=== PATIENT | male | born 1970 | race African-American/Black ===

== ENCOUNTER 2017-01-08 23:02 | Inpatient (IN) | payer SELFPAY ==
[2017-01-08] MEDS ORDERED: IPRATROPIUM/ALBUTEROL SULFATE 3 ML AMPUL.NEB NEB ONE ×2 (23:12→23:27)
--- NOTE | 2017-01-08 23:20 | ED Physician Documentation ---
Dyspnea - HISTORIAN Historian: patient - HPI Chief Complaint: Dyspnea Onset: other (3 weeks ago started) Duration: continues in ED Context: gradually getting worse over the last 4 days Severity: moderate Exacerbated By: exertion Associated Symptoms: denies: chills, fever Further Comments: yes (Patient states that he has some HTN problems. Has left his meds at home in [place] and has been taking 1/2 of normal dose until he can get back to home. Has started to have some breathing tightnes and dyspnea severla weeks ago. Has be gradually getting worse. Has been using a borrowed albuterol inhaler which seems to have helps some. Has been wheeezing. Has started to have some swelling in his ower extremities over the last week. No history or CAD, no DM, does not know his cholesterol status. Has chronic HTN, states his BP normally runs 180-190/ 105) - ROS CONST: no problems GI/: abdominal pain NEURO/PSYCH: denies: headache - PAST HX Lung Disease: denies: asthma, COPD Cardiac Disease: none PE Risk Factors: hypertension Surgeries/Procedures: none Other History: none Immunizations: other Allergies/Adverse Reactions: Allergies Allergy/AdvReac Type Severity Reaction Status Date / Time No Known Allergies Allergy Verified 01/09/17 00:25 Home Medications: Ambulatory Orders Medication Instructions Recorded Hydrochlorothiazide 25 mg PO DAILY 01/09/17 amLODIPine BESYLATE [Norvasc] 10 mg PO 0900 01/09/17 - SOCIAL HX Smoking History: quit greater than 1 year (4 years ago), greater than 1 pack/day Alcohol Use: none Drug Use: none - FAMILY HX Family History: other (hypertension, hypothyroidism) - REVIEWED ASSESSMENTS Nursing Assessment Reviewed: Yes Vitals Reviewed: Yes Progress - Progress Progress: 11:46 Duoneb has helped with the breathing and chest pressure feeling. 11:54 CXR show cardiomegally and pulmonary congestion, will give lasix 40mg IV - EKG/XRAY/CT EKG: NSR, nonspecific ST T wave chg, abnormal Q waves (inferior, poor r wave progress anteriorly) ED Results Lab/Radiology - Radiology Radiology Impressions: Chest, AP portable History: Dyspnea, chest pain Findings: There is no infiltrate, effusion or pneumothorax. The heart is significantly enlarged. Pulmonary vascular congestion is present. Impression: Cardiomegaly and pulmonary vascular congestion. - Orders Orders: ED Orders Category Date Time Status Ipratropium/Albuterol Sulfate [Duoneb] Med 01/08/17 23:12 Discontinued 3 ml NEB .STK-MED ONE Dyspnea Physical Exam - EXAM General Appearance: alert, moderate distress Neck: nml inspection. No: lymphadenopathy Respiratory: speaks full sentences, respiratory distress, wheezes, rales CVS: reg. 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
[2017-01-08] MEDS ORDERED: NITROGLYCERIN 0.4 MG TAB.SUBL SL PRN (23:26)
[2017-01-08] MEDS ORDERED: ASPIRIN 81 MG CHEW TAB PO ONE (23:26)
[2017-01-08 23:37] LABS: BASOPHILS % 0.4 (0.0-1.5); EOSINOPHILS % 3.1 % (0.0-6.8); MEAN CORPUSCULAR HEMOGLOBIN 26.6 pg (28.0-34.0); MEAN CORPUSCULAR VOLUME 83.4 fl (80.0-100.0); MONOCYTES % 4.9 % (0.0-11.0); NEUTROPHILS # 3.1 # k/uL (1.4-7.7)
[2017-01-08 23:51] LABS: eGFR (African) 56; eGFR (Non-African) 47
[2017-01-08] MEDS ORDERED: FUROSEMIDE 40 MG/4 ML VIAL ONE (23:53)
[2017-01-08] MEDS ORDERED: FUROSEMIDE 40 MG/4 ML VIAL IVP ONE (23:53)
[2017-01-09] MEDS ORDERED: PNEUMOCOCCAL 23-VAL IM ONE (00:29)
[2017-01-09] MEDS ORDERED: IPRATROPIUM/ALBUTEROL SULFATE 3 ML AMPUL.NEB NEB PRN (00:29)
[2017-01-09] MEDS ORDERED: ACETAMINOPHEN 500 MG TABLET PO PRN (00:35)
[2017-01-09] MEDS ORDERED: NITROGLYCERIN 0.4MG/HR PATCH TD ONE (00:39)
[2017-01-09] MEDS: HYDRALAZINE HCL 25 MG TABLET PO SCH ×4 (01:01→17:44)
[2017-01-09] MEDS: LISINOPRIL 5 MG TABLET PO SCH ×2 (01:01→08:47)
[2017-01-09] MEDS: ENOXAPARIN SODIUM 30 MG/0.3 ML DISP.SYRIN SQ SCH (01:09)
[2017-01-09 01:17] VITALS: BMI 41.7
[2017-01-09] MEDS: FUROSEMIDE 40 MG/4 ML VIAL IVP SCH ×2 (05:58→14:07)
[2017-01-09 06:28] LABS: eGFR (African) > 60; eGFR (Non-African) 50
--- NOTE | 2017-01-09 07:11 | Diagnostic Imaging Report ---
BOBY SPARKS [facility] [address] [facility].[address] [address] Report Submission Date: Jan 08, 2017 11:51:51 PM CDT Patient Study Name: THU SHARPE Date: Jan 08, 2017 11:37:51 PM CDT Modality Type: CR Gender: M Description: CHEST : 72 Institution: [facility] Physician: BOBY SPARKS Chest, AP portable History: Dyspnea, chest pain Findings: There is no infiltrate, effusion or pneumothorax. The heart is significantly enlarged. Pulmonary vascular congestion is present. Impression: Cardiomegaly and pulmonary vascular congestion. Electronically signed on Jan 08, 2017 11:51:51 PM CDT by: Zeke BARCLAY
[2017-01-09] MEDS: amLODIPine BESYLATE 5 MG TABLET PO SCH ×2 (08:47→08:48)
[2017-01-09] MEDS: SALINE FLUSH 10 ML DISP.SYRIN IV SCH ×2 (09:00→20:23)
[2017-01-10] MEDS: ENOXAPARIN SODIUM 30 MG/0.3 ML DISP.SYRIN SQ SCH (03:22)
[2017-01-10] MEDS: FUROSEMIDE 40 MG/4 ML VIAL IVP SCH (06:14)
--- NOTE | 2017-01-10 06:49 | Diagnostic Imaging Report ---
BOBY SPARKS [facility] [address] [facility].[address] [address] Report Submission Date: Jan 10, 2017 6:47:52 AM CDT Patient Study Name: THU SHARPE Date: Jan 10, 2017 6:28:49 AM CDT Modality Type: CR Gender: M Description: CHEST : 72 Institution: [facility] Physician: BOBY SPARKS Chest, PA and lateral History: Heart failure Findings: No infiltrate, effusion or pneumothorax is present. The heart is enlarged. Pulmonary vascularity is normal. Impression: Cardiomegaly. Electronically signed on Jan 10, 2017 6:47:52 AM CDT by: Zeke BARCLAY
[2017-01-10 07:14] LABS: eGFR (African) > 60; eGFR (Non-African) 54
[2017-01-10] MEDS: HYDRALAZINE HCL 25 MG TABLET PO SCH (09:28)
[2017-01-10] MEDS: SALINE FLUSH 10 ML DISP.SYRIN IV SCH (09:29)
[2017-01-10 09:58] VITALS: BP 149/101
--- NOTE | 2017-01-22 11:17 | Inpatient Progress Note ---
Objective - Exam Vitals and I&O: Vital Signs Temp 96.4 F L 01/10/17 09:57 Pulse 94 H 01/10/17 10:00 Resp 18 01/10/17 10:00 BP 149/101 01/10/17 09:57 Pulse Ox 96 01/10/17 09:57 - Results Results: Laboratory Results WBC 6.40 K/ul (4.00-12.00) 01/08/17 23:32 RBC 4.89 M/ul (3.90-5.20) 01/08/17 23:32 Hgb 13.0 g/dL (12.0-18.0) 01/08/17 23:32 Hct 40.8 % (37.0-53.0) 01/08/17 23: MCV 83.4 fl (80.0-100.0) 01/08/17 23: MCH 26.6 pg (28.0-34.0) L 01/08/17 23: MCHC 31.8 g/dL (30.0-36.0) 01/08/17 23:32 RDW 14.1 % (11.3-14.3) 01/08/17 23:32 Plt Count 227 K/mm3 (130-400) 01/08/17 23:32 Neut % (Auto) 48.2 % (39.0-79.0) 01/08/17 23:32 Lymph % (Auto) 40.1 % (16.0-50.0) 01/08/17 23: Pike % (Auto) 4.9 % (0.0-11.0) 01/08/17 23: Eos % (Auto) 3.1 % (0.0-6.8) 01/08/17 23: Baso % (Auto) 0.4 (0.0-1.5) 01/08/17 23: Neut # (Auto) 3.1 # k/uL (1.4-7.7) 01/08/17 23: Lymph # (Auto) 2.6 # k/uL (0.6-4.0) 01/08/17 23:32 Pike # (Auto) 0.3 # k/uL (0.0-0.9) 01/08/17 23:32 Eos # (Auto) 0.2 # k/uL (0.0-0.6) 01/08/17 23:32 Baso # (Auto) 0.0 # k/uL (0.0-0.5) 01/08/17 23:32 Reactive Lymphs % 3.3 % (0.0-5.0) 01/08/17 23:32 Reactive Lymphs # 0.2 # k/uL (0.0-0.8) 01/08/17 23:32 D-Dimer 562 ng/mL (6.0-682) 01/08/17 23:31 Sodium 138 mmol/L (136-145) 01/10/17 05:40 Potassium 3.9 mmol/L (3.5-5.0) 01/10/17 05:40 Chloride 100 mmol/L (98-110) 01/10/17 05:40 Carbon Dioxide 32 mmol/L (20-32) 01/10/17 05:40 BUN 23 mg/dL (10-26) 01/10/17 05:40 Creatinine 1.5 mg/dL (0.4-1.5) 01/10/17 05:40 Estimated Creat Clear 96 01/10/17 05:40 Est GFR ( Amer) > 60 (60-) 01/10/17 05:40 Est GFR (Non-Af Amer) 54 (60-) L 01/10/17 05:40 Glucose 125 mg/dL (70-99) H 01/10/17 05:40 Estimat Average Glucose 126 mg/dL 01/10/17 05:40 Hemoglobin A1c 6.0 % (4.0-5.6) H 01/10/17 05:40 Calcium 9.0 mg/dL (8.5-10.5) 01/10/17 05:40 Total Bilirubin 0.8 mg/dL (0.2-1.2) 01/10/17 05:40 AST 36 U/L (0-41) 01/10/17 05:40 ALT 56 U/L (0-45) H 01/10/17 05:40 Alkaline Phosphatase 69 U/L (46-116) 01/10/17 05:40 Troponin I 0.07 ng/mL (0.03-0.06) H 01/09/17 11:50 NT-Pro-B Natriuret Pep 3614.2 pg/mL (15.0-125.0) H 01/08/17 23:31 Total Protein 7.5 g/dL (6.0-8.5) 01/10/17 05:40 Albumin 4.2 g/dL (3.0-5.5) 01/10/17 05:40 Triglycerides 109 mg/dL (<150) 01/10/17 05:40 Cholesterol 144 mg/dL (<200) 01/10/17 05:40 LDL Cholesterol, Calc 99 mg/dL (<130) 01/10/17 05:40 HDL Cholesterol 23 mg/dL (>=40) L 01/10/17 05:40 LDL/HDL Ratio 4.30 (3.55) H 01/10/17 05:40 Cholesterol/HDL Ratio 6.26 (5.00) H 01/10/17 05:40 Lipid Phenotype Normal 01/10/17 05:40
--- NOTE | 2017-01-22 11:17 | Discharge Summary ---
Discharge Summary - Discharge Sumary History of Present Illness: 46-year-old male who has a history of hypertension. Patient has been traveling and forgot his medications at home. Patient is not been using medications as prescribed trying to get by until we can get back home. Patient does having some increasing dyspnea. Patient denies any chest pain. Patient had a mild cough that was productive for some cleared to white plan. No home offices noted. Patient denies any wheezing or ronchi. Patient is not had any fever or chills. Patient was seen in ED and had a CXR done which was consistent with cardiomegally and CHF. Patient was subsequently admitted to the hospital for further diuresis and evaluation. Condition at Discharge: Stable Home Medications: Ambulatory Orders Medication Instructions Recorded amLODIPine BESYLATE [Norvasc] 10 mg PO 0900 01/09/17 Furosemide 20 mg PO D #30 tablet 01/10/17 Lisinopril [Zestril] 10 mg PO D #30 tablet 01/10/17 Consultations this Visit: None Procedures this Visit: None Allergies/Adverse Reactions: Allergies Allergy/AdvReac Type Severity Reaction Status Date / Time No Known Allergies Allergy Verified 01/09/17 00:25 Discharge Summary: 41-year-old white male who submitted from [facility] for congestive heart failure. Patient was started on supplemental oxygen therapy. Patient was given IV furosemide with good diaphoresis. Initial chest x-ray showed cardiomegaly with cardiopulmonary vascular congestion. X-ray at the time of discharge showed continued cardiomegaly about the pulmonary vascular congestion have cleared. So you cardiac enzymes were obtained and were slightly elevated been stable and felt to be related to his hypertension. Patient was three started on his home medications with improvement of his blood pressure.Patient was advised that it was important for him to see a mold filler and drainer after he returned home for further diagnostic studies including an echocardiogram. Patient was advised to make sure that he takes his medications as prescribed. Patient subsequently discharged in stable condition. 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
--- NOTE | 2017-01-22 11:25 | History and Physical Report ---
History of Present Illnes - History of Present Illness Reason for Visit: dyspnea History of Present Illness: 46-year-old white male who has a history of hypertension. Patient has been traveling and forgot his medications at home. Patient is not been using medications as prescribed trying to get by until we can get back home. Patient does having some increasing dyspnea. Patient denies any chest pain. Patient had a mild cough that was productive for some cleared to white plan. No home offices noted. Patient denies any wheezing or ronchi. Patient is not had any fever or chills. Patient was seen in ED and had a CXR done which was consistent with cardiomegally and CHF. Patient was subsequently admitted to the hospital for further diuresis and evaluation. - Past Medical History Cardiac: HTN - Past Surgical History Past Surgical History: None - Past Social History Smoke: Quit ( 4 year ago) Alcohol: None Drugs: None Lives: With Family Domestic Violence: Negative - Health Maintenance Health Maintenance: denies: Cholesterol, Influenza Vaccine, Pneumococcal Vaccine Influenza Vaccine: No Pneumonia Vaccine: No Resuscitation Status: Resusciation Status Resuscitation Status Full Code - Unable to Obtain History Unable to Obtain: No Review of Systems - Review of Systems Constitutional: negative: Fever, Chills, Weakness Eyes: negative: pain, vision change ENT: negative: Ear Pain, Ear Discharge, Nose Pain, Nose Congestion, Mouth Pain, Mouth Swelling Respiratory: negative: Cough, Dry, Shortness of Breath, Hemoptysis Cardiovascular: negative: Chest Pain, Palpitations Gastrointestinal: negative: Nausea, Vomiting, Abdominal Pain, Diarrhea Genitourinary: negative: Dysuria, Frequency, Incontinence Musculoskeletal: negative: Neck Pain, Shoulder Pain, Arm Pain, Back Pain Skin: negative: Rash, Lesions Neurological: negative: Weakness, Numbness, Incoordination - Medications/Allergies Allergies/Adverse Reactions: Allergies Allergy/AdvReac Type Severity Reaction Status Date / Time No Known Allergies Allergy Verified 01/09/17 00:25 Home Medications: Home Medications amLODIPine BESYLATE [Norvasc] 10 mg PO 0900 01/09/17 Exam - Exam General: Alert, Oriented to Person, Oriented to Place, Oriented to Time, Cooperative, No acute distress HEENT: Atraumatic Neck: Stridor Lungs: Normal air movement, Speaks full Sentences, Respiratory Distress, Wheezes (mild), Rales (bases bilateral). No: Rhonchi, Prolonged Expiration Cardiovascular: Regular rate, Normal S1, Normal S2, No murmurs. No: Gallops Abdomen: Normal bowel sounds, Soft, No tenderness, No hepatospenomegaly, No masses. No: Distended Integumentary: Normal, [place], Warm, Dry Extremities: No clubbing, No cyanosis, Normal pulses, Other (2 plus edema) Neurological: Normal gait, Normal speech, Strength Equal Bilat, Normal tone Psych/Mental Status: Mental status NL, Mood NL, Appropriate Affect, Intact Judgment - Laboratory Results Laboratory Results: Laboratory Results 01/09/17 01/09/17 01/09/17 05:35 05:35 11:50 Sodium 140 Potassium 3.9 Chloride 105 Carbon Dioxide 28 BUN 23 Creatinine 1.6 H Estimated Creat Clear 91 Est GFR ( Amer) > 60 Est GFR (Non-Af Amer) 50 L Glucose 103 H Estimat Average Glucose Hemoglobin A1c Calcium 8.6 Total Bilirubin 0.6 AST 44 H ALT 64 H Alkaline Phosphatase 65 Troponin I 0.08 H 0.07 H Total Protein 7.3 Albumin 4.1 Triglycerides Cholesterol LDL Cholesterol, Calc HDL Cholesterol LDL/HDL Ratio Cholesterol/HDL Ratio Lipid Phenotype 01/10/17 01/10/17 01/10/17 05:40 05:40 05:40 Sodium 138 Potassium 3.9 Chloride 100 Carbon Dioxide 32 BUN 23 Creatinine 1.5 Estimated Creat Clear 96 Est GFR ( Amer) > 60 Est GFR (Non-Af Amer) 54 L Glucose 125 H Estimat Average Glucose 126 Hemoglobin A1c 6.0 H Calcium 9.0 Total Bilirubin 0.8 AST 36 ALT 56 H Alkaline Phosphatase 69 Troponin I Total Protein 7.5 Albumin 4.2 Triglycerides 109 Cholesterol 144 LDL Cholesterol, Calc 99 HDL Cholesterol 23 L LDL/HDL Ratio 4.30 H Cholesterol/HDL Ratio 6.26 H Lipid Phenotype Normal Assessment/Plan - Assessment/Plan (1) CHF (congestive heart failure) Status: Acute Qualifiers: Congestive heart failure type: systolic Congestive heart failure chronicity : acute Qualified Code(s): I50.21 - Acute systolic (congestive) heart failure Plan: Will start IV Lasix and diuresis. [place] oxygen status. Monitor EKG. Will get serial troponins. 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 VTE Assessment - RISK FACTOR SCORE VTE RISK FACTOR SCORES: AGE 40-60 YEARS, CONGESTIVE HEART FAILURE OR MYOCARDIAL INFARCTION - RISK VTE MODERATE RISK: SCORE OF 2 (RISK PROXIMAL DVT 2-4%) PROPHYAXIS NEEDED
== END 2017-01-10 12:40 | disposition home or self-care (01) | DRG 304 ==
LOC: ED 23:02 → SOUTH 01-09 00:23
PROVIDERS: ADMIT Physician Assistant; ATTEND Physician Assistant
DX: I10 Essential (primary) hypertension (principal); I50.21 Acute systolic (congestive) heart failure; E11.9 Type 2 diabetes mellitus without complications
CPT/HCPCS: 36415; 71010; 71020; 80053; 80061; 83036; 83880; 84484; 85025; 85379; 93005; 99284; J1940; 99223; 99233; 99238; S1016

== ENCOUNTER 2017-04-02 13:23 | Emergency (ER) | payer SELFPAY ==
--- NOTE | 2017-04-02 13:56 | ED Physician Documentation ---
General Adult - HISTORIAN Historian: patient - HPI Stated Complaint: SOA Chief Complaint: General Adult Additional Information: Patient states that he has been out of his blood pressure medication for several weeks. Patient is not sure what he has been taking. Has been having some mild chest discomfort. States it is hard for him to breath. Has had a cough of some clear phlegm. Patient states these are similar symptom that he had when he was admitted to the hospital several months ago. Patient stated he has been check in his blood pressure at home and is been running a little behind with is not remember the numbers when he is taking his medications. Patient states however his blood pressure has been much higher since is been off of the medication. Onset: days ago Timing: still present Severity: moderate Further Comments: yes (patient was advised to get a cardiology consult with an echocardiogram upon discharge when he wears admitted to the hospital in December. Patient stated he is not been so. At that time I felt that the patient did have some mild congestive heart failure.) - ROS CONST: no problems. denies: fever, chills CVS/RESP: shortness of breath (mild), cough. denies: chest pain GI/: none MS/SKIN/LYMPH: none - PAST HX Past History: COPD, hypertension Other History: none Surgeries/Procedures: none Allergies/Adverse Reactions: Allergies Allergy/AdvReac Type Severity Reaction Status Date / Time No Known Allergies Allergy Verified 04/02/17 13:51 Home Medications: Ambulatory Orders Medication Instructions Recorded Furosemide 20 mg PO D #30 tablet 04/02/17 amLODIPine BESYLATE [Norvasc] 10 mg PO 0900 #60 tablet 04/02/17 - SOCIAL HX Smoking History: non-smoker, chew Alcohol Use: none Drug Use: none - FAMILY HX Family History: Yes (HTN) - VITAL SIGNS Vital Signs: Vital Signs Temp Pulse Resp BP Pulse Ox 98.3 F 103 H 19 189/134 96 04/02/17 13:45 04/02/17 13:45 04/02/17 13:45 04/02/17 13:45 04/02/17 13:45 - REVIEWED ASSESSMENTS Nursing Assessment Reviewed: Yes Vitals Reviewed: Yes Progress - Progress Progress: 15:03 Patient is feeling better, feel that a breathing treatment would help. Has a history of COPD ED Results Lab/Radiology - Radiology Radiology Impressions: Examination: PA and lateral chest. History: Evaluate lung jacobs. Comparison exam: 10 January 2017 Findings: PA lateral chest demonstrate a prominent cardiac and mediastinal silhouette: stable the prior study. No focal infiltrate. No blunting of the costophrenic margins. Osseous structures are appropriate for age. Impression: Stable cardiac prominence. No acute pulmonary process. General Adult Physical Exam - PHYSICAL EXAM GENERAL APPEARANCE: mild distress EENT: eye inspection normal, ENT inspection normal, pharynx normal NECK: normal inspection, thyroid normal, supple RESPIRATORY: no resp distress, chest non-tender, breath sounds normal, rales ( few in the bases). No: wheezes CVS: reg rate & rhythm, heart sounds normal, equal pulses, no murmur, no gallop ABDOMEN: soft, no organomegaly, normal bowel sounds, no abdominal bruit, no distension, non-tender SKIN: warm/dry, normal color EXTREMITIES: non-tender NEURO: oriented X3, CN's nml as tested, motor nml, mood/affect nml, cognition normal Discharge Clincal Impression: Cardiomegaly Hypertension Qualifiers: Hypertension type: essential hypertension Qualified Code(s): I10 - Essential ( primary) hypertension Proteinuria Qualifiers: Proteinuria type: persistent Qualified Code(s): R80.1 - Persistent proteinuria , unspecified COPD (chronic obstructive pulmonary disease) Qualifiers: COPD type: emphysema Prescriptions: amLODIPine BESYLATE [Norvasc] 10 mg PO 0900 #60 tablet Furosemide 20 mg PO D #30 tablet Referrals: Primary Doctor,No [Primary Care Provider] - 2 Days Additional Instructions: Take Amlodipine 10mg, Lasix 20mg as instructed. Return to my office in about two weeks for recheck. Condition: Stable Disposition: 01 HOME, SELF-CARE Decision to Admit: NO Date of Decison to Admit: 04/02/17 Decision Time: 15:05
[2017-04-02 14:10] LABS: BASOPHILS % 0.7 (0.0-1.5); EOSINOPHILS % 1.4 % (0.0-6.8); MEAN CORPUSCULAR HEMOGLOBIN 26.1 pg (28.0-34.0); MEAN CORPUSCULAR VOLUME 85.5 fl (80.0-100.0); MONOCYTES % 4.8 % (0.0-11.0); NEUTROPHILS # 3.5 # k/uL (1.4-7.7)
[2017-04-02] MEDS: LABETALOL HCL 100MG/20ML VIAL IVP STA (14:22)
[2017-04-02] MEDS: ONDANSETRON HCL/PF 4 MG/ 2ML VIAL ONE (14:29)
[2017-04-02] MEDS: ONDANSETRON HCL/PF 4 MG/ 2ML VIAL IVP ONE (14:34)
--- NOTE | 2017-04-02 15:09 | Diagnostic Imaging Report ---
BOBY SPARKS [facility] [address] [facility] [address] [address] Report Submission Date: Apr 02, 2017 2:47:20 PM SURG PHYSICIAN ASST Patient Study Name: THU SHARPE Date: Apr 02, 2017 2:27:56 PM SURG PHYSICIAN ASST Modality Type: CR Gender: M Description: CHEST : 72 Institution: [facility] Physician: BOBY SPARKS Examination: PA and lateral chest. History: Evaluate lung jacobs. Comparison exam: 10 January 2017 Findings: PA lateral chest demonstrate a prominent cardiac and mediastinal silhouette: stable the prior study. No focal infiltrate. No blunting of the costophrenic margins. Osseous structures are appropriate for age. Impression: Stable cardiac prominence. No acute pulmonary process. Electronically signed on Apr 02, 2017 2:47:20 PM SURG PHYSICIAN ASST by: Tristan BARCLAY
[2017-04-02] MEDS: ALBUTEROL SULFATE 2.5 MG/3 ML AMPUL.NEB NEB ONE (15:10)
[2017-04-02 15:36] VITALS: BP 142/93
== END 2017-04-02 15:30 | disposition home or self-care (01) ==
LOC: ED 13:23
DX: I42.9 Cardiomyopathy, unspecified (principal); I10 Essential (primary) hypertension; R80.1 Persistent proteinuria, unspecified
CPT/HCPCS: 71020; 80053; 84484; 85025; 93005; J2405; J3490; 96372; 99283; S1016

== ENCOUNTER 2017-06-04 16:12 | Outpatient (CLI) | payer SELFPAY ==
[2017-05-07 08:53] VITALS: BP 168/97
== END 2017-06-04 16:13 ==
LOC: NEPHRO 16:12
PROVIDERS: ATTEND Internal Medicine Nephrology
DX: N18.9 Chronic kidney disease, unspecified (principal); I10 Essential (primary) hypertension; I50.9 Heart failure, unspecified
CPT/HCPCS: 99213

== ENCOUNTER 2017-06-10 12:14 | Emergency (ER) | payer BC, OTHER ==
--- NOTE | 2017-06-10 12:32 | ED Physician Documentation ---
Dyspnea - HISTORIAN Historian: patient - HPI Chief Complaint: Dyspnea Additional Information: 46 yo male presents to ER with c/o SOA that began this morning. Denies cough/ fever. Has history of CHF and reports approx 5 # weight gain over the previous day. No chest pain. Has been taking his meds as prescribed. Was in this hospital May 03, 2017 with similar symptoms and diuresed with good improvement in symptoms Onset: days ago (1) Duration: continues in ED Severity: mild Exacerbated By: exertion Associated Symptoms: none - ROS CONST: no problems - PAST HX Lung Disease: none Cardiac Disease: CHF Allergies/Adverse Reactions: Allergies Allergy/AdvReac Type Severity Reaction Status Date / Time No Known Allergies Allergy Verified 06/10/17 12:49 - SOCIAL HX Smoking History: non-smoker - FAMILY HX Family History: none - VITAL SIGNS Vital Signs: Vital Signs Temp Pulse Resp BP Pulse Ox 168/97 05/07/17 09:00 Progress - Progress Progress: reviewed labs from today and previous admission in Apr. BNP slightly elevated with mild peripheral edema. However, pt not requiring supplemental O2. Will attempt to manage as outpatient. Contacted pt's PCP, Dr Power who agrees with plan and will increase Lasix to 40mg BID until seen by PCP in 2 days. ED Results Lab/Radiology - Radiology Radiology Impressions: chest x-ray: cardiomegaly with mild vascular congestion - Orders Orders: ED Orders Category Date Time Status CHEST 1 VIEW [RAD] Stat Exams 06/10/17 Ordered CBC/PLATELET/DIFF Routine Lab 06/10/17 12:30 Received CMP Routine Lab 06/10/17 12:30 Received NT-proBNP Stat Lab 06/10/17 12:30 Received Dyspnea Physical Exam - EXAM General Appearance: no acute distress, alert EENT: ENT inspection normal, KENDRICK Neck: nml inspection Respiratory: no resp. distress, rhonchi, other (mild crackles bilaterally) CVS: reg. rate & rhythm Abdomen: non-tender Neuro/Psych: oriented x3 Discharge Clincal Impression: CHF exacerbation Qualifiers: Congestive heart failure type: unspecified Qualified Code(s): I50.9 - Heart failure, unspecified Referrals: Primary Doctor,No [Primary Care Provider] - 2 Days Condition: Good Disposition: 01 HOME, SELF-CARE Decision to Admit: NO Decision Time: 13:13
[2017-06-10 12:33] LABS: BASOPHILS % 0.9 (0.0-1.5); EOSINOPHILS % 2.2 % (0.0-6.8); MEAN CORPUSCULAR HEMOGLOBIN 26.3 pg (28.0-34.0); MEAN CORPUSCULAR VOLUME 84.6 fl (80.0-100.0); MONOCYTES % 6.5 % (0.0-11.0); NEUTROPHILS # 3.4 # k/uL (1.4-7.7)
[2017-06-10] MEDS: FUROSEMIDE 40 MG/4 ML VIAL IVP ONE (12:44)
[2017-06-10 13:47] VITALS: BP 189/98
--- NOTE | 2017-06-10 15:15 | Diagnostic Imaging Report ---
DANA GONZALEZ [facility] [address] [facility] [address] [address] Report Submission Date: Jun 10, 2017 1:13:22 PM VETERINARY BACTERIOLOGIST Patient Study Name: THU SHARPE Date: Jun 10, 2017 1:01:08 PM VETERINARY BACTERIOLOGIST Modality Type: CR Gender: M Description: CHEST : 72 Institution: [facility] Physician: DANA GONZALEZ Examination: PA and lateral chest. History: Evaluate lung jacobs. Comparison exam: 04 May 2017 Findings: PA lateral chest demonstrate a prominent cardiac and mediastinal silhouette: stable the prior study. Mild lordotic positioning. Elevation of the right hemidiaphragm. Mild basilar parenchymal haziness. Blunting of the right costophrenic margin. Osseous structures are appropriate for age. Impression: Mild basilar infiltrates and likely right effusion. Electronically signed on Jun 10, 2017 1:13:22 PM VETERINARY BACTERIOLOGIST by: Tristan BARCLAY
== END 2017-06-10 13:43 | disposition home or self-care (01) ==
LOC: ED 12:14
DX: I50.9 Heart failure, unspecified (principal); R06.00 Dyspnea, unspecified
CPT/HCPCS: 71010; 80053; 83880; 84484; 85025; 99283; J1940; S1016

== ENCOUNTER 2017-06-12 11:58 | Outpatient (CLI) | payer BC | END 2017-06-12 12:00 | LOC: LAB 11:58 | PROVIDERS: ATTEND Family Medicine | DX: I10 Essential (primary) hypertension (principal) | CPT/HCPCS: 36415; 83970; 84100 ==

== ENCOUNTER 2017-06-13 09:14 | Outpatient (CLI) | payer BC, OTHER ==
--- NOTE | 2017-06-13 10:05 | Diagnostic Imaging Report ---
FLO RODGERS [facility] [address] [facility] [address] [address] Report Submission Date: Jun 13, 2017 10:03:53 AM ADZING AND BORING MACHINE FEEDER Patient Study Name: THU SHARPE Date: Jun 13, 2017 9:38:11 AM ADZING AND BORING MACHINE FEEDER Modality Type: US Gender: M Description: US EXAM ABD BACK WALL : 72 Institution: [facility] Physician: FLO RODGERS Examination: Ultrasound kidneys History: KIDNEY DISEASE (Hx) Comparison exams: None available. Findings: Right kidney measures 10.2 cm in length. Left kidney measures 10.8 cm in length. No evidence for cortical mass bilaterally. Bilateral renal cysts: Left measuring 1.9 cm maximally, right measuring 9 mm maximally. Bladder margin without mucosal regularity. Bilateral ureteral jets. Pre void bladder volume of 111 ml. No post void residual. Impression: Bilateral renal cysts. No evidence for cortical mass or obstruction. Electronically signed on Jun 13, 2017 10:03:53 AM ADZING AND BORING MACHINE FEEDER by: Tristan BARCLAY
== END 2017-06-13 09:15 ==
LOC: RAD 09:14
PROVIDERS: ATTEND Family Medicine
DX: I10 Essential (primary) hypertension (principal); I50.21 Acute systolic (congestive) heart failure; N18.1 Chronic kidney disease, stage 1
CPT/HCPCS: 76770

== ENCOUNTER 2017-09-05 16:04 | Emergency (ER) | payer BC ==
--- NOTE | 2017-09-05 16:56 | ED Physician Documentation ---
General Adult - HISTORIAN Historian: patient, spouse - HPI Stated Complaint: SOB Chief Complaint: General Adult Additional Information: HX CHF. 17 pound weight gain in last two weeks. SCHMITZ. Abdomen feels tight. Has appt at [facility] in 5 days with cardiology. Saw his primary today, who was reluctant to increase his lasix further (now 40 mg BID), so sent him to ER. EF recently 35%. - ROS CONST: denies: fever - PAST HX Past History: CHF - SOCIAL HX Smoking History: non-smoker - FAMILY HX Family History: No - VITAL SIGNS Vital Signs: Vital Signs Temp Pulse Resp BP Pulse Ox 189/98 06/10/17 13:43 <ALIRIO LAWRENCE - Last Filed: 09/05/17 19:07> - VITAL SIGNS Vital Signs: Vital Signs Temp Pulse Resp BP Pulse Ox 98.1 F 74 26 H 155/80 96 09/05/17 16:04 09/05/17 18:00 09/05/17 16:04 09/05/17 16:04 09/05/17 16:04 <French Ferguson - Last Filed: 09/05/17 20:22> - PAST HX Allergies/Adverse Reactions: Allergies Allergy/AdvReac Type Severity Reaction Status Date / Time No Known Allergies Allergy Verified 06/10/17 12:49 Progress - Progress Progress: Patient Study Name: THU SHARPE Date: Sep 05, 2017 5:30:43 PM CDT Modality Type: DX Gender: M Description: CHEST : 72 Institution: [facility] Physician: ALIRIO LAWRENCE - Examination: Portable chest. History: Evaluate lung jacobs. Comparison exam: 02 April 2017 Findings: Single view of the chest demonstrate a prominent cardiac and mediastinal silhouette: stable the prior study. No focal infiltrate. No blunting of the costophrenic margins. Articular degenerative changes. Impression: Stable cardiac prominence. No acute pulmonary process. Electronically signed on Sep 05, 2017 5:55:19 PM CDT by: Tristan Jacob, care to Dr. Ferguson. <ALIRIO LAWRENCE - Last Filed: 09/05/17 19:07> - Results/Orders Results/Orders: pt received from ALIRIO 1900hrs for sy chf fluid retention. he has lhad excellent urine out put w/the 40 lasix and has an appt w/his cardiologists tues next so we will sent him home w/increase lasix to 40 tid and take copies lab etc to his cardiologists. <French Ferguson - Last Filed: 09/05/17 20:22> ED Results Lab/Radiology - Orders Orders: ED Orders Category Date Time Status Continuous EKG monitoring Q1H Care 09/05/17 16:36 Active CHEST 1VIEW [RAD] Stat Exams 09/05/17 Ordered CBC/PLATELET/DIFF Routine Lab 09/05/17 Ordered CMP [CMP] Routine Lab 09/05/17 Ordered NT-proBNP Stat Lab 09/05/17 Ordered EKG WITH COMPARISON Stat Ther 09/05/17 Ordered <ALIRIO LAWRENCE - Last Filed: 09/05/17 19:07> - Lab Results Lab Results: Lab Results 09/05/17 09/05/17 09/05/17 16:48 16:30 16:30 WBC 4.50 K/ul K/ul (4.00-12.00) RBC 5.31 M/ul H M/ul (3.90-5.20) Hgb 14.3 g/dL g/dL (12.0-18.0) Hct 44.0 % % (37.0-53.0) MCV 82.9 fl fl (80.0-100.0) MCH 26.8 pg L pg (28.0-34.0) MCHC 32.4 g/dL g/dL (30.0-36.0) RDW 14.2 % % (11.3-14.3) Plt Count 253 K/mm3 K/mm3 (130-400) Neut % (Auto) 43.8 % % (39.0-79.0) Lymph % (Auto) 41.8 % % (16.0-50.0) [place] % (Auto) 6.5 % % (0.0-11.0) Eos % (Auto) 4.4 % % (0.0-6.8) Baso % (Auto) 0.4 (0.0-1.5) Neut # (Auto) 2.0 # k/uL # k/uL (1.4-7.7) Lymph # (Auto) 1.9 # k/uL # k/uL (0.6-4.0) [place] # (Auto) 0.3 # k/uL # k/uL (0.0-0.9) Eos # (Auto) 0.2 # k/uL # k/uL (0.0-0.6) Baso # (Auto) 0.0 # k/uL # k/uL (0.0-0.5) Reactive Lymphs % 3.3 % % (0.0-5.0) Reactive Lymphs # 0.2 # k/uL # k/uL (0.0-0.8) Sodium 142 mmol/L mmol/L (136-145) Potassium 3.9 mmol/L mmol/L (3.5-5.1) Chloride 99 mmol/L mmol/L (98-107) Carbon Dioxide 28 mmol/L mmol/L (22-30) BUN 18 mg/dL mg/dL (9-20) Creatinine 1.50 mg/dL H mg/dL (0.66-1.25) Estimated Creat Clear 110 Est GFR ( Amer) > 60 (60 - ) Est GFR (Non-Af Amer) 54 L (60 - ) Glucose 130 mg/dL H mg/dL (74-106) Calcium 8.9 mg/dL mg/dL (8.4-10.2) Total Bilirubin 0.7 mg/dL mg/dL (0.2-1.3) AST 41 U/L U/L (15-46) ALT 44 U/L U/L (13-69) Alkaline Phosphatase 54 U/L U/L (38-126) NT-Pro-B Natriuret Pep 358.2 pg/mL H pg/mL (15.0-125.0) Total Protein 7.8 g/dL g/dL (6.3-8.2) Albumin 4.3 g/dL g/dL (3.5-5.0) - Radiology Radiology Impressions: cxr does not reveal sig chf and his abd is sig more distended than usual-his LFT are ok so will send hem home with lasix increase only until sees cardiology. - Orders Orders: ED Orders Category Date Time Status Continuous EKG monitoring Q1H Care 09/05/17 16:36 Active CHEST 1VIEW [RAD] Stat Exams 09/05/17 Completed CBC/PLATELET/DIFF Routine Lab 09/05/17 16:30 Completed CMP [CMP] Routine Lab 09/05/17 16:30 Completed NT-proBNP Stat Lab 09/05/17 16:48 Completed Furosemide [Lasix] Med 09/05/17 18:18 Discontinued 40 mg IVP NOW ONE EKG WITH COMPARISON Stat Ther 09/05/17 Ordered <French Ferguson - Last Filed: 09/05/17 20:22> General Adult Physical Exam - PHYSICAL EXAM GENERAL APPEARANCE: obese EENT: eye inspection normal, ENT inspection normal, pharynx normal NECK: normal inspection, supple RESPIRATORY: no resp distress, breath sounds normal CVS: reg rate & rhythm, heart sounds normal (a little distant) ABDOMEN: soft, no organomegaly (liver 6-7 cm below RCM at MCL in 30 5 recumbent position), non-tender BACK: normal inspection, no CVA tenderness (no vertebral tenderness) SKIN: warm/dry, normal color EXTREMITIES: non-tender, no evidence of injury, no edema NEURO: CN's nml as tested, motor nml, sensation nml, cognition normal <ALIRIO LAWRENCE - Last Filed: 09/05/17 19:07> Discharge <ALIRIO LAWRENCE - Last Filed: 09/05/17 19:07> Decision to Admit: NO Decision Time: 20:22 <French Ferguson Last Filed: 09/05/17 20:22> Clincal Impression: FLUID RETENTION, ascites w/minimal depentent leg edema, hx severe chf Referrals: Mickey Power MD [Primary Care Provider] - 2 Days Condition: Good Disposition: 01 HOME, SELF-CARE
[2017-09-05 17:52] LABS: BASOPHILS % 0.4 (0.0-1.5); EOSINOPHILS % 4.4 % (0.0-6.8); MEAN CORPUSCULAR HEMOGLOBIN 26.8 pg (28.0-34.0); MEAN CORPUSCULAR VOLUME 82.9 fl (80.0-100.0); MONOCYTES % 6.5 % (0.0-11.0)
[2017-09-05 18:03] LABS: eGFR (African) > 60; eGFR (Non-African) 54
[2017-09-05] MEDS: FUROSEMIDE 40 MG/4 ML VIAL IVP ONE (18:20)
--- NOTE | 2017-09-05 18:27 | Diagnostic Imaging Report ---
ALIRIO LAWRENCE [facility] [id number] [facility] [address] [address] Report Submission Date: Sep 05, 2017 5:55:19 PM CDT Patient Study Name: THU SHARPE Date: Sep 05, 2017 5:30:43 PM CDT Modality Type: DX Gender: M Description: CHEST : 72 Institution: [facility] Physician: ALIRIO LAWRENCE Examination: Portable chest. History: Evaluate lung jacobs. Comparison exam: 02 April 2017 Findings: Single view of the chest demonstrate a prominent cardiac and mediastinal silhouette: stable the prior study. No focal infiltrate. No blunting of the costophrenic margins. Articular degenerative changes. Impression: Stable cardiac prominence. No acute pulmonary process. Electronically signed on Sep 05, 2017 5:55:19 PM CDT by: Tristan BARCLAY
[2017-09-05 20:48] VITALS: BP 166/113
== END 2017-09-05 20:45 | disposition home or self-care (01) ==
LOC: ED 16:04
DX: E87.79 Other fluid overload (principal); R18.8 Other ascites; R60.9 Edema, unspecified; Z86.79 Personal history of other diseases of the circulatory system
CPT/HCPCS: 71045; 80053; 83880; 85025; J1940; 96374; S1016

== ENCOUNTER 2018-02-04 19:44 | Emergency (ER) | payer SELFPAY ==
[2018-02-04] MEDS: ASPIRIN 81 MG CHEW TAB PO ONE (20:10)
[2018-02-04] MEDS: NITROGLYCERIN 0.4 MG TAB.SUBL SL PRN (20:10)
[2018-02-04] MEDS ORDERED: NITROGLYCERIN 0.4 MG TAB.SUBL SL ONE (20:12)
--- NOTE | 2018-02-04 20:17 | ED Physician Documentation ---
Dyspnea - HISTORIAN Historian: patient, spouse - HPI Stated Complaint: short of breath Chief Complaint: Dyspnea Additional Information: intro self as [employer]. pt presents to the ED via POV with c/o shortness of breath x 2 weeks worse today. pt reports he has a hx of COPD and CHF and is followed by dr tavarez cardiology. pt reports 10 pound weight gain in 2 weeks. pt reports he takes lasix 40 mg BID. Pt reports he has not taken his evening medications. pt reports he has "breathing treatments' at home and has not used them recently. pt a/o x 3 and able to ambulate to room and speak in full sentences. pt denies current chest pain, syncope/near syncope, headache, dizziness, visual disturbances, n/v/d, fever, rash, sick contacts, dysuria, trauma. melena or hematochezia, change in bowel or bladder function. anxiety or depression. ROS Negative unless otherwise specified. Onset: other (2 weeks ago ) Duration: continues in ED Severity: moderate Exacerbated By: other (activity) Associated Symptoms: sweating, productive cough. denies: chills, fever, chest pain, chest discomfort, heart racing, leg pain, dizziness, light-headedness, anxiety, hands tingling, face tingling - ROS CONST: no problems EYES/ENT: none GI/: none NEURO/PSYCH: denies: headache MS/SKIN/LYMPH: none Comment: denies chest pain, dizziness, fever, rash, change in mental status. see HPI - PAST HX Lung Disease: COPD Cardiac Disease: CHF PE Risk Factors: hypertension Surgeries/Procedures: none Other History: diabetes Type 2, other (sleep apnea) Allergies/Adverse Reactions: Allergies Allergy/AdvReac Type Severity Reaction Status Date / Time No Known Allergies Allergy Verified 02/04/18 21:09 Home Medications: Ambulatory Orders Medication Instructions Recorded Allopurinol [Zyloprim] 1 tab PO DAILY 02/04/18 - SOCIAL HX Smoking History: less than 1 pack/day Alcohol Use: occasionally Drug Use: none - FAMILY HX Family History: other (HTN DM) - VITAL SIGNS Vital Signs: Vital Signs Temp Pulse Resp BP Pulse Ox 166/113 09/05/17 20:45 - REVIEWED ASSESSMENTS Nursing Assessment Reviewed: Yes Vitals Reviewed: Yes Progress - Progress Progress: 2100 pt Reports breathing mildly improved after 2L O2. 97% RR 22. 2155- HR78 RR22 146/76 98% 2L RR 20 pt improved after duoneb/atrovent. Left Clear. RLL fine crackles. Eupneic. no retractions no accessory use. speaking normally in full sentences. 2250 Pt reports he is at baseline and in no distress and is ready for DC. eupneic. VSS. 97% RA. RR 18 - EKG/XRAY/CT EKG: NSR, no ST T wave changes, unchanged from (09/05/17) XRAY: chest Xray Comments: No acute cardiopulmonary abnormality. Stable 1 cm left upper lobe lung nodu ED Results Lab/Radiology - Lab Results Lab Results: NA 138 K 3.9 Cl 107 CO2 32 Glucose 167 Urea Nitrogen 19 CR 1.4 Ca 8.1 ALT 42 AST 29 ALKP 65 total bili 0.3 total protein 7.8 Albumin 4.0 CBC and CMP Reviewed and WNL. glucose mildly elevated but not acute. - Radiology Radiology Impressions: CXR interp by RAD: no acute cardiopulmonary process. Stable 1 cm nodule. - Orders Orders: ED Orders Category Date Time Status Continuous EKG monitoring Q30M Care 02/04/18 20:04 Active Continuous Pulse Oximetry Q30M Care 02/04/18 20:[address] IV Lock 1T Care 02/04/18 20:04 Active CHEST 1VIEW [RAD] Stat Exams 02/04/18 Ordered BNP [NT-proBNP] Stat Lab 02/04/18 Ordered CBC/PLATELET/DIFF Routine Lab 02/04/18 20:04 Ordered CMP Routine Lab 02/04/18 20:04 Ordered TROPONIN I (cTnI) Stat Lab 02/04/18 Ordered Aspirin Med 02/04/18 20:04 Discontinued 324 mg PO NOW ONE Nitroglycerin [Nitroquick] Med 02/04/18 20:04 Ordered 0.4 mg SL Q5M PRN Oxygen Daily Oxygen 02/04/18 20:15 Ordered EKG WITH COMPARISON Stat Ther 02/04/18 20:04 Ordered Dyspnea Physical Exam - EXAM General Appearance: alert, mild distress EENT: eye inspection normal, pharynx normal, no signs of dehydration. No: dry mucous membranes Neck: nml inspection Respiratory: no resp. distress, no pain on inspiration, speaks full sentences, decreased air movement, other (tachypnea). No: respiratory distress, respiratory failure, prolonged expirations, accessory muscle use, wheezes, rhonchi CVS: reg. rate & rhythm, no murmur, no gallop, pulses equal Abdomen: non-tender. No: guarding, rebounding Skin: color nml, no rash, cyanosis, diaphoresis, nml palp. Extremities: non-tender, normal range of motion, no evidence of injury, edema (1+ non pitting pedal edema ), other Neuro/Psych: oriented x3, CN's nml as tested, motor nml, sensation nml Discharge Clincal Impression: COPD (chronic obstructive pulmonary disease) Qualifiers: COPD type: unspecified COPD Qualified Code(s): J44.9 - Chronic obstructive pulmonary disease, unspecified CHF (congestive heart failure) Qualifiers: Heart failure type: unspecified Heart failure chronicity: chronic Qualified Code(s): I50.9 - Heart failure, unspecified Referrals: Gaston Parikh MD [Primary Care Provider] - 2 Days Comments: Resume current medications Prednisone 50 mg once daily for 5 days. follow up with primary care this week or before if worse Use previously prescribed breathing treatments on schedule for several days until improved. Take weight daily and record. Call manager [facility] if increased so they can advise on diuretic. Seek medical care immediately if you have chest pain, shortness of breath, fever, feeling faint or passing out, or any concern. Condition: Good Disposition: 01 HOME, SELF-CARE Decision to Admit: NO Date of Decison to Admit: 02/04/18 Decision Time: 23:03
[2018-02-04] MEDS: POTASSIUM CHLORIDE 20 MEQ TABLET.ER PO ONE (20:55)
[2018-02-04] MEDS: FUROSEMIDE 40 MG/4 ML VIAL IVP ONE (20:56)
[2018-02-04] MEDS: IPRATROPIUM/ALBUTEROL SULFATE 3 ML AMPUL.NEB NEB ONE (21:30)
[2018-02-04] MEDS: BUDESONIDE 0.5MG/2ML AMPUL.NEB NEB STA (22:00)
[2018-02-04 22:21] LABS: BASO % 0.4 % (0.0-1.5); EOS % 5.1 % (0.0-6.8); LYMPH ABS # 1.87 thou/uL (0.60-4.00); MCH. 27.6 pg (28.0-34.0); MONOCYTE % 10.9 % (0.0-11.0); MONOCYTE ABS # 0.49 thou/uL (0.00-0.90); PLATELET COUNT 236 thou/uL (130-400)
[2018-02-04] MEDS: ALBUTEROL SULFATE 2.5 MG/3 ML AMPUL.NEB NEB ONE (22:30)
[2018-02-04] MEDS: methylPREDNISolone SOD SUCC 125 MG/2 ML VIAL IVP ONE (22:55)
[2018-02-04 23:51] VITALS: BP 142/74
--- NOTE | 2018-02-05 06:56 | Diagnostic Imaging Report ---
TOBI THAKUR [facility] [address] [facility] [address] [address] Report Submission Date: Feb 04, 2018 9:01:49 PM CDT Patient Study Name: THU SHARPE Date: Feb 04, 2018 8:35:52 PM CDT Modality Type: DX Gender: M Description: CHEST : 72 Institution: [facility] Physician: TOBI THAKUR Chest AP portable Date of Exam: February 04, 2018. History: DYSPNEA, HX OF CHF (Hx) / ITS.REASON dyspena Findings: Comparison is made with September 05, 2017. The cardiac and mediastinal silhouettes are stable. No acute infiltrate or effusion is identified. The 1 cm left upper lobe round lung density or nodule is unchanged. The trachea is midline and the aortic arch contour is normal. The pulmonary vascularity is stable. Impression: No acute cardiopulmonary abnormality. Stable 1 cm left upper lobe lung nodule. Electronically signed on Feb 04, 2018 9:01:49 PM CDT by: Melia BARCLAY
[2018-02-05 09:42] LABS: eGFR (Non-African) 54
== END 2018-02-04 23:15 | disposition home or self-care (01) ==
LOC: ED 19:44
DX: J44.9 Chronic obstructive pulmonary disease, unspecified (principal); I50.9 Heart failure, unspecified
CPT/HCPCS: 71045; 80053; 83880; 84484; 85025; 93005; 94640; 96374; 96375; 99285; A9270; J1940; J2930; J7626; S1016